=== PATIENT | female | born 1995 | race Two or more races ===

== ENCOUNTER 2022-04-21 23:07 | Emergency (ER) | payer OTHER ==
[~2022-04-21] VITALS: Ht 149.9 cm; Wt 104.5 kg
[2022-04-21 23:41] LABS: APPEARANCE,URINE CLEAR (CLEAR); BILIRUBIN,URINE NEGATIVE (NEGATIVE); GLUCOSE, URINE (UA) NEGATIVE (NEGATIVE); KETONES,URINE TRACE mg/dL (NEGATIVE); LEUKOCYTE ESTERASE ,URINE NEGATIVE (NEGATIVE); NITRATE,URINE NEGATIVE (NEGATIVE); OCCULT BLOOD,URINE NEGATIVE (NEGATIVE); PROTEIN,URINE TRACE mg/dL (NEGATIVE); SPECIFIC GRAVITIY, URINE 1.024 (1.003-1.030); UROBILINOGEN,URINE <=1.0 mg/dL (<=1.0)
[2022-04-21 23:48] LABS: EOSINOPHILS % (AUTO) 2.3 % (1.0-6.0); HEMATOCRIT 38.5 % (36-46); LYMPHOCYTES # (AUTO) 3.7 K/uL (1.0-4.8); LYMPHOCYTES % (AUTO) 33.7 % (22.0-44.0); MEAN CORPUSCULAR HGB CONC 33.7 G/dL (31.0-37.0); MEAN CORPUSCULAR VOLUME 89 fL (80-100); MONOCYTES # (AUTO) 0.6 K/uL (0.1-1.0); MONOCYTES % (AUTO) 5.1 % (2.0-9.0); NEUTROPHILS # (AUTO) 6.4 K/uL (1.8-7.7); NEUTROPHILS % (AUTO) 57.9 % (40.0-70.0); PLATELET COUNT (AUTO) 359 K/uL (150-450); RED BLOOD CELL COUNT(AUTO) 4.32 MIL/uL (4.00-5.20); RED CELL DISTRIBUTION WIDTH 13.5 % (11.5-14.5)
[2022-04-21 23:57] LABS: ANION GAP 5 mmol/L (8-16); CALCIUM, TOTAL 8.9 mg/dL (8.8-10.5); CARBON DIOXIDE 28 mmol/L (22-29); CHLORIDE 104 mmol/L (98-107); CREATININE 0.76 mg/dL (0.60-1.30); GLUCOSE,RANDOM 148 mg/dL (70-110); POTASSIUM 3.5 mmol/L (3.5-5.1); SODIUM SERUM 137 mmol/L (136-145); UREA NITROGEN, BLOOD 12 mg/dL (7-18)
[2022-04-22] LABS: GLOMERULAR FILTR. RATE CALC > 60 mL/min (>60)
[2022-04-22 00:04] LABS: ALANINE AMINOTRANSFERASE 117 U/L (12-78); ALBUMIN 3.5 g/dL (3.4-5.0); ALKALINE PHOSPHATASE 120 U/L (46-116); ASPARTATE AMINOTRANSFERASE 41 U/L (15-37); BILIRUBIN,TOTAL 0.4 mg/dL (0.1-1.0); TOTAL PROTEIN, SERUM 7.4 g/dL (6.4-8.2)
[2022-04-22 00:08] LABS: HCG,QUANTITATIVE < 1 mIU/mL (0-6); LIPASE 119 U/L (73-393)
[2022-04-22] MEDS ORDERED: SODIUM CHLORIDE 0.9% 1,000 ML IV ONE (01:00)
[2022-04-22] MEDS ORDERED: ONDANSETRON HCL 4 MG/2 ML VIAL IVP ONE ×2 (01:00→02:30)
[2022-04-22] MEDS ORDERED: KETOROLAC TROMETHAMINE 30 MG/ML VIAL IVP ONE (01:00)
[2022-04-22] MEDS ORDERED: ONDA-104 PO (03:50)
[2022-04-22 03:56] VITALS: BP 139/79
== END 2022-04-22 03:58 | disposition home or self-care (01) ==
LOC: EMS 23:26
DX: R10.13 Epigastric pain (principal); K76.0 Fatty (change of) liver, not elsewhere classified; N76.0 Acute vaginitis
CPT/HCPCS: 99284; 80053; 81003; 83690; 84702; 85025; 36415; 74176; 96374; 96361; 96375; 96376; J1885; J2405; J7030

== ENCOUNTER 2023-04-22 16:48 | Emergency (ER) | payer OTHER ==
[~2023-04-22] VITALS: Ht 147.3 cm; Wt 104.5 kg
[~2023-04-22 16:48] MED LIST: ONDA-104 PO
[2023-04-22 16:54] VITALS: TEMP 98.4
[2023-04-22 17:13] LABS: COVID AG,FIA SOURCE NASAL SWAB
[2023-04-22 17:37] LABS: SARS-COV2 (COVID) ANTIGEN,FIA Negative (Negative)
[2023-04-22 17:38] LABS: INFLUENZA TYPE B NEGATIVE FOR TYPE B (NEGATIVE)
[2023-04-22 17:39] LABS: INFLUENZA TYPE A POSITIVE FOR TYPE A (NEGATIVE)
[2023-04-22] MEDS ORDERED: OSEL75 PO (18:58)
[2023-04-22] MEDS ORDERED: ALBUTEROL SULFATE 2.5 MG/0.5 ML NEB SOLUTION NEB ONE (19:00)
[2023-04-22] MEDS ORDERED: IBUPROFEN 600 MG TABLET PO ONE (19:00)
[2023-04-22] MEDS ORDERED: IPRATROPIUM BROMIDE 0.5 MG/2.5 ML NEB SOLUTION NEB ONE (19:00)
[2023-04-22] MEDS ORDERED: ALBU18HF12 IH (19:10)
[2023-04-22 19:12] VITALS: PULSE 78; RESP 20; O2SAT 96
[2023-04-22] MEDS ORDERED: DEXAMETHASONE 4 MG TABLET PO ONE (19:15)
[2023-04-22 19:25] VITALS: BP 115/71
[2023-04-22 19:37] VITALS: PULSE 99; RESP 20; O2SAT 97
== END 2023-04-22 19:54 | disposition home or self-care (01) ==
LOC: EMS 16:49
DX: J10.1 Influenza due to other identified influenza virus with other respiratory manifestations (principal); Z20.822 Contact with and (suspected) exposure to COVID-19
CPT/HCPCS: 99283; 87426; 87804; 94640; J8540